=== PATIENT | male | born 1975 | race Caucasian/White ===

== ENCOUNTER 2021-06-20 19:56 | Emergency (ER) | payer BC ==
[2021-06-20 20:26] LABS: RED BLOOD COUNT 5.37 M/UL (4.20-5.50); WHITE BLOOD COUNT 12.2 K/UL (4.5-11.0)
[2021-06-20 21:00] LABS: BUN/CREATININE RATIO 13 (0-10)
== END 2021-06-21 02:07 | disposition home or self-care (01) ==
LOC: ER1 19:56
PROVIDERS: Physician Assistant Medical
DX: R07.89 Other chest pain (principal); E11.9 Type 2 diabetes mellitus without complications; I10 Essential (primary) hypertension; Z20.822 Contact with and (suspected) exposure to COVID-19
CPT/HCPCS: 71045; 80053; 82550; 82553; 83874; 83880; 84484; 85025; 85379; 85610; 85730; 93005; 99285; U0002